=== PATIENT | male | born 1955 | race Caucasian/White ===

== ENCOUNTER → 2019-08-31 | Day surgery (SDC) | payer MEDICARE ==
[~2019-08-31] MED LIST: EXCEDRIN CAPLE1 EACH PO; IMITREX 50 MG T50 MG PO; LORCET 5-325 M1 EACH PO; PREDNISONE 10 M10 M1 PO; ROSUVASTATIN CA20 MG PO; VITAMIN D5000 UNIT PO
--- NOTE | ~2019-08-31 | OP ---
[facility] [address] [place] [address] OPERATIVE REPORT Name: MILAGRO ZAMUDIO Room: [facility].#: [id number] Admission: 08/31/19 Attend Phys: Yobani Nelson Discharge: Date of : 53 Report #: [id number] THIS REPORT FOR: //name// CC: Yobani Guerrero DATE OF SERVICE: 08/31/2019 PREOPERATIVE DIAGNOSES: 1. Right thigh lipomas. 2. Left thigh lipomas. 3. Midline chest lipoma. 4. Left upper arm lipomas. 5. Left lateral chest lipomas. 6. Right upper arm lipomas. 7. Right lateral chest lipomas. POSTOPERATIVE DIAGNOSES: 1. Right thigh lipomas. 2. Left thigh lipomas. 3. Midline chest lipoma. 4. Left upper arm lipomas. 5. Left lateral chest lipoma. 6. Right upper arm lipomas. 7. Right lateral chest lipomas. OPERATION: 1. Excision of right anterior thigh lipomas, 6 cm. 2. Excision of left thigh lipomas, 6 cm. 3. Excision of 7 cm midline chest mass. 4. Excision of 6 cm left upper arm lipomas. 5. Excision of left lateral chest lipomas, 6 cm. 6. Excision of right arm lipomas, 7 cm. 7. Excision of right lateral chest lipomas, 7 cm. SURGEON: Yobani Nelson MD ANESTHESIA: General. ESTIMATED BLOOD LOSS: Minimal. SPECIMENS: 1. Right thigh lipoma. 2. Left thigh lipomas. 3. Midline chest wall lipoma. 4. Left upper arm lipomas. [place] [id number] OPERATIVE REPORT Name: MILAGRO ZAMUDIO Room: [facility].#: [id number] Admission: 08/31/19 Attend Phys: Yobani Nelson Discharge: Date of : 53 Report #: [id number] 5. Left lateral chest lipomas. 6. Right upper arm lipomas. 7. Right lateral chest lipomas. DESCRIPTION OF PROCEDURE: After informed consent was obtained, the patient was brought to the operating room and placed supine. SCDs were placed and working, preoperative antibiotics were administered, general anesthesia was induced. The right chest, bilateral arms, bilateral chest and bilateral lower extremities were prepped and draped in the usual sterile fashion with chlorhexidine throughout this procedure. Attention was first directed to the anterior thighs. I made a 6 cm incision in the right lateral thigh. Cautery dissection was made down through the subcutaneous tissue. There was a large lipoma which was excised. Skin was then closed with mecca. In the left eye, he had approximately 4 such lesions. A 2 cm incisions were made over these lesions. The total size of the masses were approximately 6 cm. Cautery dissection was made down through the subcutaneous tissue. Subcutaneous lipomas were excised. Again, the skin was closed with mecca. Attention was then directed to the midline chest. A 7 cm incision was made. Cautery dissection was made down through the subcutaneous tissue. Lipoma was excised. The patient was then placed in the right lateral decubitus position. Bony prominences were protected and an axillary roll was placed. Incisions were made over the left lateral chest and left upper arm. Approximately 10 incisions were made in the left chest and 3 in the left upper arm. Again, these were excised with cautery and then closed with mecca. The patient was placed in the left lateral decubitus position with an axillary roll and all bony prominences protected. Again, incisions were made with a #15 blade. Approximately, 6 lesions were excised on the right side and 3 right arm lesions were excised. The total sizes are listed in the operative note above. Sterile dressings were applied to all of these after the skin was closed with mecca. Sterile dressings were applied. COMPLICATIONS: None. DISPOSITION: The patient was taken to recovery in satisfactory condition. By: [id number] Nelson MD /jayne
[2019-08-31 08:20] LABS: ABSOLUTE BASOPHILS 0.1 thou/uL (0.0-0.2); ABSOLUTE EOSINOPHILS 0.2 thou/uL (0.0-0.7); ABSOLUTE LYMPHOCYTES 3.2 thou/uL (0.8-5.3); ABSOLUTE MONOCYTES 0.6 thou/uL (0.0-1.2); ABSOLUTE NEUTROPHILS 7.3 thou/uL (1.6-8.1); BASOPHILS 0.6 %; EOSINOPHILS 1.6 %; HEMATOCRIT 42.5 % (42.0-52.0); HEMOGLOBIN 14.8 gm/dL (14.0-18.0); LYMPHOCYTES 27.9 %; MCH 32.8 pg (26.0-34.0); MCHC 34.7 g/dL (28.0-37.0); MCV 94.7 fL (80.0-100.0); MONOCYTES 5.7 %; MPV 8.3 fl. (7.2-11.1); NUCLEATED RBCS 0 /100WBC; PLATELET COUNT* 194 thou/uL (150-400); POLYS 64.2 %; RBC 4.49 mil/uL (4.50-6.00); RDW-CV 13.5 % (10.5-14.5); WBC 11.3 thou/uL (4.0-11.0)
[2019-08-31 08:27] LABS: CALCIUM 8.2 mg/dL (8.5-10.1); POTASSIUM 3.9 mmol/L (3.5-5.1)
[2019-08-31 08:31] LABS: ALBUMIN 3.5 g/dL (3.4-5.0); TOTAL BILIRUBIN 0.4 mg/dL (<0.1-1.0); TOTAL PROTEIN 6.8 g/dL (6.4-8.2)
--- NOTE | 2019-08-31 14:36 | EKG ---
[place] [address] ELECTROCARDIOGRAM REPORT Name: MILAGRO ZAMUDIO Room: [facility].#: [id number] Admission: 08/31/19 Attend Phys: Yobani Nelson Discharge: Date of : 53 Report #: [id number] THIS REPORT FOR: //name// [facility] Test Date: 2019-08-31 Test Time: 08:03:22 Pat Name: MILAGRO ROBB Department: Room: Gender: M Cable Wirer: : 1955 Requested By: Yobani Nelson Order Number: [id number] Keiry MD: Mele Guillermo Measurements Intervals [place] Rate: 61 P: 47 [place]: 173 QRS: 21 QRSD: 94 T: 38 QT: 421 QTc: 424 Interpretive Statements Sinus rhythm Abnormal R-wave progression, early transition No previous ECG available for comparison Electronically Signed On 08-31-2019 14:36:43 CDT by Mele Guillermo [email or web address] <ELECTRONICALLY SIGNED> By: Mele Guillermo MD, [facility] 08/31/19 [id number] [phone] Mele Guillermo MD, FACC /EPI
--- NOTE | 2019-09-04 15:07 | PATH ---
[facility] [address] [place] [address] PATHOLOGY RPT PROCEDURE Name: MILAGRO MILLS Room: [facility].#: [id number] Admission: 08/31/19 Date of : 53 Discharge: Report #: [id number] Path Case #: [id number] [facility] Accession Number: [id number] . 01 Material submitted: . PART A: thigh - RIGHT THIGH LIPOMA. Modifiers: right PART B: thigh - LEFT THIGH LIPOMA. Modifiers: left PART C: chest - MID CHEST MASS. Modifiers: mid PART D: arm - LEFT UPPER ARM LIPOMA. Modifiers: left, upper PART E: chest - LEFT LATERAL CHEST LIPOMA. Modifiers: left, lateral PART F: arm - RIGHT UPPER ARM LIPOMA. Modifiers: right, upper PART G: chest - RIGHT LATERAL CHEST LIPOMA. Modifiers: right, lateral . 01 Clinical history: . Arm mass, chest mass, back mass, leg mass . 02 Diagnosis: A. Right thigh lipoma: - Lipoma. . B. Left thigh lipoma(s): - Multiple segments of mature fat consistent with lipoma(s). . C. Mid chest mass: - Lipoma. . D. Left upper arm lipoma: - Consistent with lipoma. . E. Left lateral chest lipoma(s): - Multiple segments of mature fat consistent with lipoma(s), with evidence of fat necrosis including focal nodular cystic change associated with fibrous pseudoencapsulation. . F. Right upper arm lipoma(s): - Multiple segments of mature fat consistent with angiolipoma(s). . G. Right lateral chest (lipoma): - Consistent with lipoma. (AURY/db; 09/04/2019) LBQ 09/04/2019 1155 Local . 02 Electronically signed: . Charlie Romo MD, Pathologist NPI- [id number] . 01 Gross description: . A. The specimen is received in formalin, labeled "Milagro Mills, [place] [address] PATHOLOGY RPT PROCEDURE Name: MILAGRO MILLS Room: [facility].#: [id number] Admission: 08/31/19 Date of : 53 Discharge: Report #: [id number] Path Case #: [id number] thigh lipoma". Received is a segment of yellow-gerber lobulated tissue measuring 3.6 x 3.0 x 1.4 cm in greatest dimensions. Sectioning reveals bright yellow cut surfaces with no grossly distinct nodules or lesions. The specimen is submitted representatively in cassette A1. . B. The specimen is received in formalin, labeled "Milagro Knust, left thigh lipomas". The specimen is additionally labeled on the requisition as, "left thigh lipoma". Received are multiple segments of yellow-gerber lobulated tissue measuring 6.9 x 5.8 x 2.9 cm in aggregate dimensions. Sectioning reveals bright yellow cut surfaces with no grossly distinct nodules or lesions. The specimen is submitted representatively in cassette B1 and B2. . C. The specimen is received in formalin, labeled "Milagro Knust, midline chest mass". The specimen is additionally labeled on the requisition as, "mid chest mass". Received is a segment of yellow-gerber lobulated tissue measuring 4.9 x 4.9 x 2.4 cm in greatest dimensions. Sectioning reveals bright yellow cut surfaces with no grossly distinct nodules or lesions. The specimen is submitted representatively in cassette C1 and C2. . D. The specimen is received in formalin, labeled "Milagro Knust, left upper arm lipoma". Received are multiple segments of yellow-gerber lobulated tissue measuring 4.1 x 3.2 x 1.2 cm in aggregate dimensions. Sectioning reveals bright yellow cut surfaces with no grossly distinct nodules or lesions. The specimen is submitted representatively in cassette D1 and D2. . E. The specimen is received in formalin, labeled "Milagro Knust, left lateral chest lipomas". The specimen is additionally labeled on the requisition as, "left lateral chest lipoma". Received are multiple segments of yellow-gerber lobulated tissue measuring 9.3 x 7.9 x 4.2 cm in aggregate dimensions. Sectioning reveals bright yellow cut surfaces with no grossly distinct nodules or lesions. The specimen is submitted representatively in cassette E1 through E3. . F. The specimen is received in formalin, labeled "Milagro Knust, right upper arm lipomas". The specimen is additionally labeled on the requisition as, "right upper arm lipoma". Received are multiple segments of yellow-gerber lobulated tissue measuring 7.5 x 5.8 x 2.6 cm in aggregate dimensions. Sectioning reveals bright yellow cut surfaces with no grossly distinct nodules or lesions. The specimen is submitted representatively in cassette F1 and F2. . G. The specimen is received in formalin, labeled "Mil[place]ro [place], right lateral chest". The specimen is additionally labeled on the requisition as, "right lateral chest lipoma". Received are multiple segments of yellow-gerber lobulated tissue measuring 6.2 x 6.1 x 2.4 cm in aggregate dimensions. Sectioning reveals bright yellow cut surfaces with no grossly distinct nodules or lesions. The [place] [address] PATHOLOGY RPT PROCEDURE Name: MILAGRO MILLS Room: [facility]#: [id number] Admission: 08/31/19 Date of : 53 Discharge: Report #: [id number] Path Case #: [id number] in cassette G1 and G2. (CAA; 09/03/2019) QAC/QAC 09/03/2019 0930 Local . 02 Pathologist provided ICD-10: D17.79 . 02 CPT . 315339, 658125, 119318, 994443, 984857, 908874, 640275 Specimen Comment: A courtesy copy of this report has been sent to [phone], [phone] Specimen Comment: [id number] Specimen Comment: Report sent to / DR RENTERIA Performed at: 01 [facility] [address], [place], [place] [id number] MD Anton Vieira MD Phone: [phone] Performed at: 02 [facility] [address], [place], [place] [id number] MD Charlie Romo MD Phone: [phone]
== END | disposition home or self-care (01) ==
LOC: M.SUR 07:05
PROVIDERS: Surgery
DX: D17.24 Benign lipomatous neoplasm of skin and subcutaneous tissue of left leg (principal); D17.23 Benign lipomatous neoplasm of skin and subcutaneous tissue of right leg; D17.1 Benign lipomatous neoplasm of skin and subcutaneous tissue of trunk; D17.22 Benign lipomatous neoplasm of skin and subcutaneous tissue of left arm; D17.21 Benign lipomatous neoplasm of skin and subcutaneous tissue of right arm; Z79.899 Other long term (current) drug therapy; Z98.890 Other specified postprocedural states

== ENCOUNTER → 2019-11-22 | Outpatient (CLI) | payer MEDICARE | LOC: M.MRI 11-14 15:52 | DX: S46.811A Strain of other muscles, fascia and tendons at shoulder and upper arm level, right arm, initial encounter (principal); S46.011A Strain of muscle(s) and tendon(s) of the rotator cuff of right shoulder, initial encounter; S43.401A Unspecified sprain of right shoulder joint, initial encounter; M25.411 Effusion, right shoulder; M75.21 Bicipital tendinitis, right shoulder; M48.02 Spinal stenosis, cervical region; M19.011 Primary osteoarthritis, right shoulder; M25.711 Osteophyte, right shoulder; X58.XXXA Exposure to other specified factors, initial encounter; Y93.89 Activity, other specified; Y92.89 Other specified places as the place of occurrence of the external cause; Y99.8 Other external cause status ==